=== PATIENT | male | born 1960 | race Caucasian/White ===

== ENCOUNTER 2016-12-28 05:54 | Emergency (ER) | payer BC ==
[2016-12-28 06:07] VITALS: BP 137/83
--- NOTE | 2016-12-28 06:47 | ERNOTE ---
Lower Extremity HPI - General Lower Extremities Pain: foot: right - pain Time Seen by Provider: 12/28/16 06:32 Source: patient Exam Limitations: no limitations - Immun/Allergies/Home Medications Immunizations: IMMUNIZATION HX Immunizations Up to Date Yes History of Influenza Vaccine No Hx Pneumococcal Vaccination Yes Allergies/Adverse Reactions: Allergies Allergy/AdvReac Type Severity Reaction Status Date / Time No Known Allergies Allergy Unverified 12/28/16 06:06 Home Medications: HOME MEDICATIONS Atenolol/Chlorthalidone [Atenolol-Chlorthalidone 100-25] 1 each PO DAILY [Last Taken Unknown] Potassium Chloride [Klor-Con M10] 10 meq PO BID 12/28/16 [Last Taken Unknown] Simvastatin [Zocor] 20 mg PO HS 12/28/16 [Last Taken Unknown] - History of Present Illness Narrative: Pt was walking his dog yesterday and the dog pulled and he twisted his foot. Pain continues to get worse and he was unable to bear weight this am. Occurred: yesterday Location of Incident: other - street Method of Injury: Reports: twisted Associated Symptoms: Reports: unable to bear weight - this am but was able to yesterday Review of Systems - Review of Systems Constitutional: Absent: recent illness EYE: Present: no symptoms reported ENT: Present: no symptoms reported Respiratory: Present: no symptoms reported Cardiology: Present: no symptoms reported Musculoskeletal: Present: See HPI Skin: Absent: rash Neurological: Absent: numbness, tingling Endocrine: Present: no symptoms reported Hematologic/Lymphatic: Present: no symptoms reported Psych: Present: no symptoms reported - Patient's Past Medical History Patient History - Medical: Other Patient History - Cardiac/Respiratory: Hypertension, Hyperlipidemia Patient History - Cancer: No Hx of Cancer Patient History - Surgical Procedures: T & A, Vasectomy, Hernia Repair, Orthopedic Patient History - Other: None - Social History Living Situations: spouse Abuse History: No History of abuse Psych History: No pertinent hx Smoking Status: Former smoker Have you smoked in the past 12 months: No Do you dip or chew tobacco: No Patient requests Smoking Cessation Consult: No Alcohol Use: rarely Drug Use: none - Immunizations Immunizations Up to Date: Yes Hx Pneumococcal Vaccination: Yes History of Influenza Vaccine: No Physical Exam - Physical Exam General Appearance: Present: wd/wn, alert, no apparent distress Head Exam: Present: normal inspection, no evidence of injury Neck: Present: normal inspection, full range of motion Respiratory: Present: no respiratory distress, no accessory muscle use Extremity Exam: Present: decreased range of motion, other - right foot has mild swelling proximally and laterally. Ankle is non-tender and has FROM. Neurological Exam: Present: alert, oriented, normal mood/affect, no motor/ sensory deficits Skin Exam: Present: normal color, warm/dry Lymphatic Exam: Present: no adenopathy ED Progress - Vital Signs Patient's Vital Signs:: I have reviewed the patient's vital signs. Vital Signs: Vital Signs 12/28/16 05:59 Temperature 36.8 C Pulse Rate 70 Respiratory 14 Rate Blood Pressure 137/83 O2 Sat by Pulse 99 Oximetry - X-Ray X-Ray #1 X-Ray: ankle Interpretation: Interp. by me X-ray Comments: no fracture or dislocation X-Ray #2 Interpretation: Interp. by me X-ray Comments: no fracture or dislocation - Progress/Reassessment Chief Complaint: Lower Extremity Pain/ Injury Progress:: Unchanged Departure Clinical Impression: Right foot sprain Qualifiers: Encounter type: initial encounter Qualified Code(s): S93.601A - Unspecified sprain of right foot, initial encounter - Departure Disposition: Home self-care Condition: Good Instructions: Foot Sprain Additional Instructions: use ice off and on 15-20 minutes at a time. Take ibuprofen 600-800mg three times a day as needed. Referrals: Des Rooney MD [Primary Care Provider] -
== END 2016-12-28 07:10 | disposition home or self-care (01) ==
LOC: ER 05:54
DX: S93.601A Unspecified sprain of right foot, initial encounter (principal); Z87.891 Personal history of nicotine dependence; X50.1XXA Overexertion from prolonged static or awkward postures, initial encounter; Y93.K1 Activity, walking an animal; E78.5 Hyperlipidemia, unspecified; I10 Essential (primary) hypertension